=== PATIENT | male | born 1985 | race Two or more races ===

== ENCOUNTER 2021-06-05 13:37 | Emergency (ER) | payer SELFPAY ==
[~2021-06-05] VITALS: Ht 170.2 cm; Wt 75.5 kg
--- NOTE | 2021-06-05 14:57 | PHYS DOC ---
Past Medical History Past Surgical History: No Surgical History General Adult EDM: Chief Complaint: HAND PROBLEM HPI: HPI: Patient is a 36 year old male who presents with patient works in construction and was using a nail gun today when the nail gun went off and the nail went into the left thumb right under the cuticle and up inside the thumb. Patient pulled out the nail. He states his tetanus shot was less than 5 years ago. He rates his pain a 5 out of 10. He states is an aching type pain. Patient is unable to bend the thumb at the PIP joint. No swelling at this time. Patient denies any other past medical history. There is a very small superficial cut in the skin at the cuticle from where the nail entered. No actual nailbed damage. Patient denies numbness or tingling, swelling. Review of Systems: Review of Systems: Constitutional: Denies fever or chills. [] Eyes: Denies change in visual acuity. [] HENT: Denies nasal congestion or sore throat. [] Respiratory: Denies cough or shortness of breath. [] Cardiovascular: Denies chest pain or edema. [] GI: Denies abdominal pain, nausea, vomiting, bloody stools or diarrhea. [] : Denies dysuria. [] Musculoskeletal: Denies back pain or + left thumb joint pain. [] Integument: Denies rash. + Nail puncture [] Neurologic: Denies headache, focal weakness or sensory changes. [] Endocrine: Denies polyuria or polydipsia. [] Lymphatic: Denies swollen glands. [] Psychiatric: Denies depression or anxiety. [] Heart Score: C/O Chest Pain: N/A Risk Factors: Risk Factors: DM, Current or recent (<one month) smoker, HTN, HLP, family history of CAD, obesity. Risk Scores: Score 0 - 3: 2.5% MACE over next 6 weeks - Discharge Home Score 4 - 6: 20.3% MACE over next 6 weeks - Admit for Clinical Observation Score 7 - 10: 72.7% MACE over next 6 weeks - Early Invasive Strategies Allergies: Allergies: Allergies Coded Allergies Type Severity Reaction Last Updated Verified No Known Drug Allergies 06/05/21 No Physical Exam: PE: Constitutional: Well developed, well nourished, no acute distress, non-toxic appearance. [] HENT: Normocephalic, atraumatic, bilateral external ears normal, oropharynx moist, no oral exudates, nose normal. [] Eyes: PERRLA, EOMI, conjunctiva normal, no discharge. [] Neck: Normal range of motion, no tenderness, supple, no stridor. [] Cardiovascular:Heart rate regular rhythm, no murmur [] Lungs & Thorax: Bilateral breath sounds clear to auscultation [] Abdomen: Bowel sounds normal, soft, no tenderness, no masses, no pulsatile masses. [] Skin: Warm, dry, no erythema, no rash. Small superficial cut at the cuticle of the left thumb [] Back: No tenderness, no CVA tenderness. [] Extremities: No tenderness, no cyanosis, no clubbing, left thumb ROM not intact, no edema. [] Neurologic: Alert and oriented X 3, normal motor function, normal sensory function, no focal deficits noted. [] Psychologic: Affect normal, judgement normal, mood normal. [] Current Patient Data: Vital Signs: Vital Signs Date Time Temp Pulse Resp B/P (MAP) Pulse Ox O2 Delivery O2 Flow Rate FiO2 06/05/21 14:25 98.7 91 16 116/69 97 Room Air 98.7 EKG: EKG: [] Radiology/Procedures: Radiology/Procedures: [] Impression: [facility] [address] [place] [address] IMAGING REPORT Signed PATIENT: LIS RIVASCCOUNT: [id number] : 1985 LOCATION: ER AGE: 36 SEX: M EXAM STATUS: REG ER ORD. PHYSICIAN: FABI ALEJO APRN REASON: PAIN AFTER NAIL GUN SHOT INTO THUMB PROCEDURE: HAND LEFT 3V EXAM: Left wrist, 2 views; left hand, 3 views. HISTORY: Nail gun penetrating injury. COMPARISON: None. FINDINGS: 3 views of the left hand and 2 views of the left wrist are obtained. There is no acute fracture, dislocation or subluxation. There is no radiodense foreign body. IMPRESSION: No acute osseous finding or radiodense foreign body. Electronically signed by: Astrid Durán MD (06/05/2021 2:56 PM) [id number] DICTATED and SIGNED BY: ASTRID DURÁN MD DATE: 06/05/21 [id number] [facility] [address] [place] [address] IMAGING REPORT Signed PATIENT: MOE RIVASOUNT: [id number] : 1985 LOCATION: ER AGE: 36 SEX: M EXAM STATUS: REG ER ORD. PHYSICIAN: FABI ALEJO APRN REASON: PAIN AFTER NAIL GUN SHOT INTO THUMB PROCEDURE: WRIST 3V LEFT EXAM: Left wrist, 2 views; left hand, 3 views. HISTORY: Nail gun penetrating injury. COMPARISON: None. FINDINGS: 3 views of the left hand and 2 views of the left wrist are obtained. There is no acute fracture, dislocation or subluxation. There is no radiodense foreign body. IMPRESSION: No acute osseous finding or radiodense foreign body. Electronically signed by: Astrid Durán MD (06/05/2021 2:56 PM) [id number] DICTATED and SIGNED BY: ASTRID DURÁN MD DATE: 06/05/21 [id number] Course & Med Decision Making: Course & Med Decision Making Pertinent Labs and Imaging studies reviewed. (See chart for details) See HPI. Alert and oriented x4. Ambulatory steady gait. Speaks in full clear sentences. Radial pulse strong are present. Cap refill less than 2 seconds. Patient states he was not wearing a glove. Patient will be placed in a thumb AlumaFoam splint. Patient will follow up with [facility] as they have a hand orthopedic at that facility. [] Dragon Disclaimer: Dragon Disclaimer: This electronic medical record was generated, in whole or in part, using a voice recognition dictation system. Departure Departure Impression: Primary Impression: Puncture wound of thumb Qualified Codes: S61.032A - Puncture wound without foreign body of left connie mb without damage to nail, initial encounter Disposition: HOME / SELF CARE / HOMELESS Condition: STABLE Referrals: NO PCP (PCP) Patient Instructions: Puncture Wound Additional Instructions: Follow-up with primary care provider or [facility]. We do not have a hand surgeon here. [facility] has a hand surgeon. I would follow-up as soon as you can. Take antibiotic as prescribed and with food. Take ibuprofen for your pain. Use ice to help with any kind of swelling or pain also. Scripts Cephalexin (CEPHALEXIN) 500 Mg Capsule 1 CAP PO TID, #30 CAP Prov: FABI ALEJO APRN 06/05/21 FABI ALEJO APRN Jun 05, 2021 14:57
[2021-06-05] MEDS ORDERED: CEPH500C PO (15:06)
[2021-06-05 15:48] VITALS: BP 111/60
== END 2021-06-05 15:48 | disposition home or self-care (01) ==
LOC: ER 13:37
DX: S61.032A Puncture wound without foreign body of left thumb without damage to nail, initial encounter (principal); Y93.89 Activity, other specified; W29.4XXA Contact with nail gun, initial encounter; Y92.89 Other specified places as the place of occurrence of the external cause; Y99.8 Other external cause status
CPT/HCPCS: 73120; 73130; 99284